=== PATIENT | male | born 1955 | race Caucasian/White ===

== ENCOUNTER 2023-11-04 15:16 | Outpatient (RCR) | payer MEDICARE, OTHER, SELFPAY | END 2023-11-04 23:59 | disposition home or self-care (01) | LOC: RST 15:16 | PROVIDERS: ATTENDING PHYSICIAN Otolaryngology; FAMILY PHYSICIAN Internal Medicine | DX: R13.10 Dysphagia, unspecified (principal); R13.12 Dysphagia, oropharyngeal phase | CPT/HCPCS: 92610 ==

== ENCOUNTER 2023-11-13 11:09 | Outpatient (RCR) | payer MEDICARE, OTHER, SELFPAY | END 2023-11-13 23:59 | disposition home or self-care (01) | LOC: RST 11:09 | PROVIDERS: ATTENDING PHYSICIAN Otolaryngology; FAMILY PHYSICIAN Internal Medicine | DX: R13.10 Dysphagia, unspecified (principal); R13.12 Dysphagia, oropharyngeal phase | CPT/HCPCS: 92526 ==

== ENCOUNTER → 2023-12-15 15:32 | Outpatient (REF) | payer MEDICARE, OTHER, SELFPAY | LOC: DHCBC MAIN 15:32 | PROVIDERS: ATTENDING PHYSICIAN Internal Medicine Cardiovascular Disease; FAMILY PHYSICIAN Internal Medicine | DX: R60.9 Edema, unspecified (principal) | CPT/HCPCS: 93306 ==

== ENCOUNTER 2024-01-07 06:18 | Outpatient (RCR) | payer MEDICARE, OTHER, SELFPAY | END 2024-01-07 23:59 | disposition home or self-care (01) | LOC: RST 06:18 | PROVIDERS: ATTENDING PHYSICIAN Otolaryngology; FAMILY PHYSICIAN Internal Medicine | DX: R13.10 Dysphagia, unspecified (principal); R13.12 Dysphagia, oropharyngeal phase | CPT/HCPCS: 92526 ==

== ENCOUNTER 2024-02-09 10:15 | Outpatient (RCR) | payer MEDICARE, OTHER, SELFPAY | END 2024-02-09 23:59 | disposition home or self-care (01) | LOC: RST 10:15 | PROVIDERS: ATTENDING PHYSICIAN Otolaryngology; FAMILY PHYSICIAN Internal Medicine | DX: R13.10 Dysphagia, unspecified (principal); R13.12 Dysphagia, oropharyngeal phase | CPT/HCPCS: 92526 ==

== ENCOUNTER 2024-03-08 09:33 | Outpatient (RCR) | payer MEDICARE, OTHER, SELFPAY | END 2024-03-08 23:59 | disposition home or self-care (01) | LOC: ROT 09:33 | PROVIDERS: ATTENDING PHYSICIAN Otolaryngology; FAMILY PHYSICIAN Internal Medicine | DX: R13.10 Dysphagia, unspecified (principal); I69.391 Dysphagia following cerebral infarction (principal); R13.12 Dysphagia, oropharyngeal phase; Z91.81 History of falling | CPT/HCPCS: 92526; 97110; 97163; 97167; 97530; 97535 ==

== ENCOUNTER → 2024-04-01 07:46 | Outpatient (REF) | payer MEDICARE, OTHER, SELFPAY | LOC: RAD 07:46 | PROVIDERS: PRIMARYCARE PHYSICIAN Internal Medicine | DX: M60.9 Myositis, unspecified (principal); R53.1 Weakness; R76.8 Other specified abnormal immunological findings in serum | CPT/HCPCS: 74177; Q9967 ==

== ENCOUNTER 2024-04-07 06:29 | Outpatient (RCR) | payer MEDICARE, OTHER, SELFPAY | END 2024-04-07 23:59 | disposition home or self-care (01) | LOC: ROT 06:29 | PROVIDERS: ATTENDING PHYSICIAN Otolaryngology; FAMILY PHYSICIAN Internal Medicine | DX: I69.398 Other sequelae of cerebral infarction (principal); R13.10 Dysphagia, unspecified (principal); R13.12 Dysphagia, oropharyngeal phase; R26.89 Other abnormalities of gait and mobility; H53.8 Other visual disturbances; I69.391 Dysphagia following cerebral infarction; I69.322 Dysarthria following cerebral infarction; Z73.6 Limitation of activities due to disability | CPT/HCPCS: 92522; 92526; 97110; 97112; 97116; 97530; 97535 ==

== ENCOUNTER → 2024-05-06 08:14 | Outpatient (REF) | payer MEDICARE, OTHER, SELFPAY | LOC: RAD 08:14 | PROVIDERS: ATTENDING PHYSICIAN Internal Medicine | DX: R13.10 Dysphagia, unspecified (principal) | CPT/HCPCS: 74230; 92611 ==

== ENCOUNTER 2024-05-10 10:24 | Outpatient (RCR) | payer MEDICARE, OTHER, SELFPAY | END 2024-05-10 23:59 | disposition home or self-care (01) | LOC: ROT 10:24 | PROVIDERS: ATTENDING PHYSICIAN Otolaryngology; FAMILY PHYSICIAN Internal Medicine | DX: I69.398 Other sequelae of cerebral infarction (principal); I63.30 Cerebral infarction due to thrombosis of unspecified cerebral artery (principal); Z73.6 Limitation of activities due to disability; R13.10 Dysphagia, unspecified; I69.391 Dysphagia following cerebral infarction; I69.322 Dysarthria following cerebral infarction; R13.12 Dysphagia, oropharyngeal phase | CPT/HCPCS: 92507; 92526; 97110; 97112; 97530; 97535 ==

== ENCOUNTER 2024-05-19 10:52 | Outpatient (RCR) | payer MEDICARE, OTHER, SELFPAY | END 2024-05-19 16:10 | disposition home or self-care (01) | LOC: ROT 10:52 | PROVIDERS: ATTENDING PHYSICIAN Otolaryngology; FAMILY PHYSICIAN Internal Medicine | DX: I63.30 Cerebral infarction due to thrombosis of unspecified cerebral artery (principal); I69.322 Dysarthria following cerebral infarction (principal); I69.398 Other sequelae of cerebral infarction; R13.10 Dysphagia, unspecified; I69.391 Dysphagia following cerebral infarction; R13.12 Dysphagia, oropharyngeal phase; I69.319 Unspecified symptoms and signs involving cognitive functions following cerebral infarction; H53.9 Unspecified visual disturbance; H53.8 Other visual disturbances; R26.89 Other abnormalities of gait and mobility; Z73.6 Limitation of activities due to disability | CPT/HCPCS: 92507; 92526; 97110; 97112; 97530; 97535 ==

== ENCOUNTER → 2024-08-01 20:05 | Outpatient (REF) | payer MEDICARE, OTHER, SELFPAY | LOC: MRI 3T 20:05 | PROVIDERS: ATTENDING PHYSICIAN Internal Medicine | DX: D35.2 Benign neoplasm of pituitary gland (principal); G45.9 Transient cerebral ischemic attack, unspecified; R41.9 Unspecified symptoms and signs involving cognitive functions and awareness; Z86.73 Personal history of transient ischemic attack (TIA), and cerebral infarction without residual deficits | CPT/HCPCS: 70553; A9575 ==

== ENCOUNTER 2024-09-16 12:57 | Emergency (ER) | payer MEDICARE, OTHER, SELFPAY ==
[2024-09-16 13:15] VITALS: BP 158/103
--- NOTE | 2024-09-16 13:19 | ED.GENMED ---
ED Provider Triage
<Chantell Ybarra NP - Last Filed: 09/16/24 13:21>
-
Patient seen by provider in Triage?: Seen in Triage
Attestation: A medical screening examination has been initiated by a qualified medical provider. Based on the assessment performed at this time, it has been determined that an emergent medical condition may exist and the patient has been informed
that further medical evaluation and possible additional diagnostic testing may be needed.
HPI: 69-year-old male states she has had a cough and shortness of breath for 2 weeks[address] He saw his Dr. Rodriguez today and sent here for evaluation. He denies fever or chills. He denies N/V/D/C.
GENERAL: Alert , in no apparent distress
EYE: No visual abnormalities.
NECK: Trachea midline
ENT: No visible abnormalities.
LUNGS: No acute respiratory distress
NEUROLOGICAL: Alert and oriented
SKIN: Skin intact. No visible changes.
MUSCULOSKELETAL: Moving extremities normally
PSYCH: Normal and appropriate interaction.
This is a medical evaluation conducted in person to initiate diagnostic evaluation and provide initial therapeutics. Please see further documentation by the treating clinician.
History of Present Illness
<Chantell Ybarra CERTIFIED MEDICAL CODING SPECIALIST - Last Filed: 09/16/24 13:21>
General
Chief Complaint: Breathing Problem
Time Seen by Provider: 09/16/24 17:50
<Rigoberto Contreras MD - Last Filed: 09/16/24 19:32>
History of Present Illness
History of Present Illness:
Patient is a 69-year-old male with history of A-fib on Eliquis, hypertension, DEIRDRE presenting to the emergency department cough and shortness of breath. Patient states for the past week he has had a cough with occasional difficulty breathing. He
states that he is feels congested and has been having some rhinorrhea. Over the past 2 days congestion worsen. He does note some shortness of breath with exertion and some orthopnea as well. No chest pain. He does note some mild lower extremity
swelling bilaterally that has been ongoing for quite some time now. No fevers or chills. No travel malignancy or hemoptysis. No recent sick contacts.
Past History
<Chantell Ybarra NP - Last Filed: 09/16/24 13:21>
Past History
ED Past Medical History: Arrthythmia (Atrial fibrillation) and HTN
ED Past Surgical History: Orthopedic (left hip)
Social History
Tobacco: Non-smoker
Alcohol: None
Drug: None
Personal:
Living: with family
Employment: Employed
Phy Exam
<Rigoberto Contreras MD - Last Filed: 09/16/24 19:32>
Physical Exam
Physical Exam:
GENERAL: in no acute distress
HEENT: normocephalic, extraocular movements intact, moist oral mucosa
NECK: normal inspection
RESPIRATORY: no respiratory distress, wheezing in all lung roque with coarse breath sounds in right lower
CARDIOVASCULAR: regular rate and rhythm
ABDOMEN/: soft, non-distended, non-tender to palpation, no rebound or guarding
EXTREMITIES: non-tender, mild pitting edema bilaterally
NEUROLOGIC: awake and alert, moves all extremities
SKIN: warm
Scores
<Rigoberto Contreras MD - Last Filed: 09/16/24 19:32>
Heart Failure Risk
Heart Failure Risk Score: Not Applicable
Course
<Chantell Ybarra CERTIFIED MEDICAL CODING SPECIALIST - Last Filed: 09/16/24 13:21>
Orders/Labs/Results
Orders:
Orders
09/16/24 13:18
Chest [CR Chest - 2 Views ] Urgent
Comment:
Reason For Exam: SOB
09/16/24 13:25
COVID-19 Antigen Urgent
Source: Nasal Swab
Complete Blood Count/With Diff Urgent
Comprehensive Metabolic Panel Urgent
09/16/24 17:43
Electrocardiogram (*1) Urgent
Reason for Study: Chest Pain
Cardiac Monitoring- Treatment ONCE
EKG- Treatment ONCE
IV Insert/Care/Rem.- Treatment PRN
09/16/24 17:49
Pro-BNP [NT-proBNP] Urgent
Troponin I Urgent
09/16/24 18:18
Ipratropium/Albuterol Sulfate [Duoneb] 3 ml INH R NOW ONE
09/16/24 19:25
Azithromycin [Zithromax] 500 mg PO NOW STA
09/16/24 19:27
Cefdinir [Omnicef] 300 mg PO NOW STA
Abnormal Lab Results
09/16/24
13:25
Absolute Neuts (auto) 7.4 H 10^3/uL
(1.4-6.5)
Absolute Monos (auto) 1.0 H 10^3/uL
(0.1-0.6)
Lymphocytes % 14.9 L %
(20.5-51.1)
Monocytes % 9.5 H %
(1.7-9.3)
Glucose 121 H mg/dl
(70-99)
09/16/24 13:25
09/16/24 13:25
Vital Signs
Initial and Last Documented VS:
Initial Vital Signs
Temp Pulse Resp BP Pulse Ox
98.2 F 82 18 158/103 95
09/16/24 13:15 09/16/24 13:15 09/16/24 13:15 09/16/24 13:15 09/16/24 13:15
Last Documented Vital Signs
Temp Pulse Resp BP Pulse Ox
98.2 F 75 27 134/80 94
09/16/24 13:15 09/16/24 19:01 09/16/24 18:30 09/16/24 19:00 09/16/24 19:05
<Hamna Ben, MD - Last Filed: 09/16/24 19:32>
Orders/Labs/Results
Orders:
Orders
09/16/24 13:18
Chest [CR Chest - 2 Views ] Urgent
Comment:
Reason For Exam: SOB
09/16/24 13:25
COVID-19 Antigen Urgent
Source: Nasal Swab
Complete Blood Count/With Diff Urgent
Comprehensive Metabolic Panel Urgent
09/16/24 17:43
Electrocardiogram (*1) Urgent
Reason for Study: Chest Pain
Cardiac Monitoring- Treatment ONCE
EKG- Treatment ONCE
IV Insert/Care/Rem.- Treatment PRN
09/16/24 17:49
Pro-BNP [NT-proBNP] Urgent
Troponin I Urgent
09/16/24 18:18
Ipratropium/Albuterol Sulfate [Duoneb] 3 ml INH R NOW ONE
09/16/24 19:25
Azithromycin [Zithromax] 500 mg PO NOW STA
09/16/24 19:27
Cefdinir [Omnicef] 300 mg PO NOW STA
Abnormal Lab Results
09/16/24
13:25
Absolute Neuts (auto) 7.4 H 10^3/uL
(1.4-6.5)
Absolute Monos (auto) 1.0 H 10^3/uL
(0.1-0.6)
Lymphocytes % 14.9 L %
(20.5-51.1)
Monocytes % 9.5 H %
(1.7-9.3)
Glucose 121 H mg/dl
(70-99)
09/16/24 13:25
09/16/24 13:25
Vital Signs
Initial and Last Documented VS:
Initial Vital Signs
Temp Pulse Resp BP Pulse Ox
98.2 F 82 18 158/103 95
09/16/24 13:15 09/16/24 13:15 09/16/24 13:15 09/16/24 13:15 09/16/24 13:15
Last Documented Vital Signs
Temp Pulse Resp BP Pulse Ox
98.2 F 75 27 134/80 94
09/16/24 13:15 09/16/24 19:01 09/16/24 18:30 09/16/24 19:00 09/16/24 19:05
<Rigoberto Contreras MD - Last Filed: 09/16/24 19:32>
MDM/Problems Addressed
Differential Diagnosis Includes:
Patient is a 69-year-old man presenting to the emergency department cough shortness of breath. Vitals here notable for oxygen saturation 97%. Exam does show wheezing in all lung roque with crackles to the right lower lobe as well as bilateral
pitting edema. Concern for pneumonia versus pulmonary edema versus atypical ACS given the exertional component. Considered PE though less likely. Blood work obtained prior to elevation is unremarkable. Will add on troponin and BNP. Chest x-ray
consistent with pneumonia. EKG per my interpretation normal sinus rhythm. Patient's ambulatory pulse ox was normal.
<Rigoberto Contreras MD - Last Filed: 09/16/24 19:32>
*Critical Care Note
Total Time (30-74mins, 75-104mins- exclusive of procedures): Not Applicable
<Rigoberto Contreras MD - Last Filed: 09/16/24 19:32>
Update Note
Update Note:
On reevaluations patient's wheezing has resolved. His troponin and BNP are normal. He is low risk by curb 65 for his pneumonia treatment. After shared decision making we will discharge home. First dose of antibiotics given here. Strict return
precautions given.
ED Attending Note
<Chantell Ybarra CERTIFIED MEDICAL CODING SPECIALIST - Last Filed: 09/16/24 13:21>
-
Portions of this chart may have been created with voice recognition software.� Occasional wrong word or��sound alike� substitutions may have occurred due to the inherent limitations of voice recognition software.
Discharge Plan
Departure
Patient Disposition: Home (Routine Discharge)
Date of Disposition: 09/16/24
Time of Disposition: 19:20
Patient with high blood pressure during this ER visit?: No
Discharge Problem:
Pneumonia
Instructions: Community-Acquired Pneumonia, Adult (DC)
Prescriptions:
New
albuterol sulfate 90 mcg/actuation HFA aerosol inhaler
2 puff inhalation QID PRN (Reason: shortness of breath or wheezing) Qty: 6.7 0RF
azithromycin [Zithromax] 250 mg tablet
250 mg PO DAILY Qty: 4 0RF
Rx Instructions:
start 09/17
cefdinir 300 mg capsule
300 mg PO BID 5 Days Qty: 10 0RF
No Action
psyllium husk (aspartame) [Metamucil Fiber Singles] 1 PACKET powder in packet
1 packet PO DAILY
carvedilol 6.25 MG tablet
12.5 mg PO BID
apixaban [Eliquis] 5 MG tablet
5 mg PO BID
ascorbic acid (vitamin C) [Vitamin C] 1,000 MG tablet
1,000 mg PO DAILY
zinc 10 MG tablet
1 tab PO DAILY
pantoprazole 40 MG tablet,delayed release (DR/EC)
40 mg PO DAILY Qty: 14 0RF
Referrals:
Ashwin Rodriguez I., DO [Family Provider] -
Activity Restrictions/Additional Instructions:
You were seen in the Emergency Department today for pneumonia. Please take the cefdinir and azithromycin as prescribed. You may use albuterol inhaler as needed.
We would like for you to follow up with your primary care physician for further evaluation. If you experience fever, worsening of your symptoms, or develop any other new or concerning symptoms, please return to the Emergency Department immediately.
Please see the attached sheet for additional information.
Interventions
Interventions:
*Risk Screen - Suicide Last Done: 09/16/24 13:15
*General Assessment Last Done: 09/16/24 13:15
*Neglect/Abuse Screening Last Done: 09/16/24 13:15
ED- Fall Risk Assessment Last Done: 09/16/24 17:37
*ED COVID-19 Vaccine History Last Done: 09/16/24 17:37
ED- Cardiac Assessment Last Done: 09/16/24 17:37
ED- Pulmonary Assessment Last Done: 09/16/24 19:05
Discharge Date and Time
Print Language: HEBREW
[2024-09-16 13:35] LABS: % Basophils 0.3 % (0-2); % Eosinophils 0.9 % (0-6); % Immature Granulocytes 0.3 % (0-0.5); % Lymphocytes 14.9 % (20.5-51.1); % Monocytes 9.5 % (1.7-9.3); % Neutrophils 74.1 % (42.2-75.2); Absolute Eosinophils 0.1 10^3/uL (0-0.7); Absolute Lymphocytes 1.5 10^3/uL (1.2-3.4); Absolute Neutrophils 7.4 10^3/uL (1.4-6.5); Hematocrit 41.6 % (39.0-52.0); Mean Corp Hgb Conc. 33.7 g/dL (33.0-37.0); Mean Corpuscular Hgb 29.7 pg (27.0-31.0); Mean Corpuscular Volume 88.1 fL (80.0-94.0); Mean Platelet Volume 10.2 fL (7.4-10.4); Nucleated Red Blood Cells % 0 % (-); Platelet Count 193 10^3/uL (130-400); Red Blood Cell Count 4.72 10^6/uL (4.70-6.10); Red Cell Dist. Width 12.8 % (11.5-14.5)
[2024-09-16 13:46] LABS: ALT (SGPT) 27 U/L (0-50); AST (SGOT) 34 U/L (17-59); Alkaline Phosphatase 75 U/L (38-126); Blood Urea Nitrogen 18 mg/dl (9-20); Calcium 8.5 mg/dl (8.4-10.2); Carbon Dioxide 30 mmol/L (22-30); Chloride 107 mmol/L (98-107); Glucose 121 mg/dl (70-99); Potassium 4.3 mmol/L (3.5-5.1); Sodium 144 mmol/L (135-145); Total Bilirubin 0.5 mg/dl (0.2-1.3); eGFR > 60.00
[2024-09-16 13:51] LABS: COVID-19 Antigen Negative (Negative)
[2024-09-16 15:55] VITALS: BP 142/92
[2024-09-16 17:30] VITALS: BP 133/83
--- NOTE | 2024-09-16 17:36 | EDRN ---
Pt states he came to ER for breathing 'funny.' Pt has audible expiratory wheeze and unable to cough it up.
[2024-09-16 17:45] VITALS: BMI 32.0
[2024-09-16 18:00] VITALS: BP 141/86
--- NOTE | 2024-09-16 18:03 | EDRN ---
Dr. Contreras in to see pt at this time.
[2024-09-16 18:27] LABS: NT-proBNP < 20.0 pg/ml; Troponin I < 0.012 ng/ml
[2024-09-16] MEDS: DUONEB 3 ML INH (18:29)
[2024-09-16 19:00] VITALS: BP 134/80
[2024-09-16] MEDS: ZITHROMAX 500 MG PO (20:09)
[2024-09-16] MEDS: OMNICEF 300 MG PO (20:09)
== END 2024-09-16 20:24 | disposition home or self-care (01) ==
LOC: EMR 12:57
PROVIDERS: Emergency Medicine; EMERGENCY PHYSICIAN Student in an Organized Health Care Education/Training Program; FAMILY PHYSICIAN Internal Medicine
DX: J18.9 Pneumonia, unspecified organism (principal); I10 Essential (primary) hypertension; G47.33 Obstructive sleep apnea (adult) (pediatric); I48.91 Unspecified atrial fibrillation; Z79.01 Long term (current) use of anticoagulants
CPT/HCPCS: 99285; 94640; 71046; 80053; 83880; 84484; 85025; 87811; 93005

== ENCOUNTER → 2024-10-03 11:24 | Outpatient (REF) | payer MEDICARE, OTHER, SELFPAY | LOC: RAD 11:24 | PROVIDERS: ATTENDING PHYSICIAN Internal Medicine | DX: Z13.820 Encounter for screening for osteoporosis (principal); S22.000A Wedge compression fracture of unspecified thoracic vertebra, initial encounter for closed fracture | CPT/HCPCS: 77080 ==

== ENCOUNTER → 2024-11-23 07:02 | Outpatient (REF) | payer MEDICARE, OTHER, SELFPAY | LOC: PAVMRI 07:02 | PROVIDERS: ATTENDING PHYSICIAN Psychiatry & Neurology Neurology; FAMILY PHYSICIAN Internal Medicine | DX: M54.40 Lumbago with sciatica, unspecified side (principal); M54.2 Cervicalgia | CPT/HCPCS: 72141; 72148 ==

== ENCOUNTER 2024-12-08 10:15 | Outpatient (RCR) | payer MEDICARE, OTHER, SELFPAY | END 2024-12-08 23:59 | disposition home or self-care (01) | LOC: ROT 10:15 | PROVIDERS: ATTENDING PHYSICIAN Psychiatry & Neurology Neurology; FAMILY PHYSICIAN Internal Medicine | DX: R13.10 Dysphagia, unspecified (principal); R13.12 Dysphagia, oropharyngeal phase; R47.1 Dysarthria and anarthria; Z73.6 Limitation of activities due to disability; Z86.73 Personal history of transient ischemic attack (TIA), and cerebral infarction without residual deficits | CPT/HCPCS: 92526; 92610; 97110; 97116; 97163; 97167; 97530; 97535 ==

== ENCOUNTER → 2024-12-12 09:49 | Outpatient (REF) | payer MEDICARE, OTHER, SELFPAY | LOC: RST 09:49 | PROVIDERS: ATTENDING PHYSICIAN Internal Medicine | DX: R13.10 Dysphagia, unspecified (principal) | CPT/HCPCS: 74230; 92611 ==

== ENCOUNTER → 2024-12-29 16:13 | Outpatient (REF) | payer MEDICARE, OTHER, SELFPAY | LOC: RAD 16:13 | PROVIDERS: ATTENDING PHYSICIAN Nurse Practitioner Family; FAMILY PHYSICIAN Internal Medicine | DX: J84.9 Interstitial pulmonary disease, unspecified (principal); R76.8 Other specified abnormal immunological findings in serum | CPT/HCPCS: 71250 ==

== ENCOUNTER 2025-01-09 09:34 | Outpatient (RCR) | payer MEDICARE, OTHER, SELFPAY | END 2025-01-09 23:59 | disposition home or self-care (01) | LOC: ROT 09:34 | PROVIDERS: ATTENDING PHYSICIAN Psychiatry & Neurology Neurology; FAMILY PHYSICIAN Internal Medicine | DX: R13.10 Dysphagia, unspecified (principal); R13.12 Dysphagia, oropharyngeal phase; R47.1 Dysarthria and anarthria; Z73.6 Limitation of activities due to disability; R41.89 Other symptoms and signs involving cognitive functions and awareness; I63.9 Cerebral infarction, unspecified; Z86.73 Personal history of transient ischemic attack (TIA), and cerebral infarction without residual deficits | CPT/HCPCS: 92507; 92522; 92526; 97110; 97112; 97116; 97530; 97535 ==

== ENCOUNTER → 2025-02-07 06:29 | Outpatient (RCR) | payer MEDICARE, OTHER, SELFPAY | LOC: ROT 06:29 | PROVIDERS: ATTENDING PHYSICIAN Psychiatry & Neurology Neurology; FAMILY PHYSICIAN Internal Medicine | DX: I69.391 Dysphagia following cerebral infarction (principal); R13.12 Dysphagia, oropharyngeal phase; R47.1 Dysarthria and anarthria; Z73.6 Limitation of activities due to disability; R41.89 Other symptoms and signs involving cognitive functions and awareness; Z86.73 Personal history of transient ischemic attack (TIA), and cerebral infarction without residual deficits | CPT/HCPCS: 92507; 92526; 97110; 97112; 97116; 97530; 97535 ==

== ENCOUNTER 2025-03-10 09:41 | Outpatient (RCR) | payer MEDICARE, OTHER, SELFPAY | END 2025-03-10 23:59 | disposition home or self-care (01) | LOC: ROT 09:41 | PROVIDERS: ATTENDING PHYSICIAN Psychiatry & Neurology Neurology; FAMILY PHYSICIAN Internal Medicine | DX: I69.391 Dysphagia following cerebral infarction (principal); R13.12 Dysphagia, oropharyngeal phase; R47.1 Dysarthria and anarthria; Z73.6 Limitation of activities due to disability; R41.89 Other symptoms and signs involving cognitive functions and awareness; Z86.73 Personal history of transient ischemic attack (TIA), and cerebral infarction without residual deficits | CPT/HCPCS: 92507; 92526; 97110; 97112; 97116; 97530 ==

== ENCOUNTER 2025-03-13 11:12 | Emergency (ER) | payer MEDICARE, OTHER, SELFPAY ==
[2025-03-13 11:12] VITALS: BP 134/79
[2025-03-13 11:47] VITALS: BP 136/87
[2025-03-13 12:00] VITALS: BP 132/87
--- NOTE | 2025-03-13 12:03 | EDRN ---
[employer] Day @ bedside to assess patient.
--- NOTE | 2025-03-13 12:18 | ED.GENMED ---
History of Present Illness
General
Chief Complaint: Head Injury
Source: patient and spouse
Exam Limitations: none
Time Seen by Provider: 03/13/25 11:54
Nursing documentation reviewed up to this point in time: agreed with
History of Present Illness
History of Present Illness:
69-year-old male with history of CVA with resultant dysphagia, uses walker to ambulate, A-fib on Eliquis, HTN, sleep apnea with CPAP, prothrombin gene mutation, lumbar spondylopathy, left hip replacement presents today for a fall in his bathroom
within the past few hours. He states he stumbled and fell, denies feeling weak or dizzy prior to, denies headache or chest pain. family at home heard the fall and arrived within seconds, there was no loss of consciousness. Patient denies any
injury and was able to be helped up and ambulate as usual.
Past History
Past History
ED Past Medical History: Arrthythmia (Atrial fibrillation), CVA (With resultant dysphagia), HTN and Other (Sleep apnea/CPAP)
ED Past Surgical History: Cardiac (Ablation 2020) and Orthopedic (left hip)
Social History
Tobacco: Non-smoker
Alcohol: None
Drug: None
Personal:
Living: with family
Employment: Retired
Review of Systems
Review of Systems
Allergies reviewed?: Yes
All Other Systems: ROS reviewed and negative except as documented in HPI and ROS
Constitutional: Denies fever
Respiratory: Denies trouble breathing
Cardiac: Denies chest pain or syncope
ABD/GI: Denies abdominal pain, nausea, vomiting or diarrhea
Musculoskeletal: Denies neck pain or back pain
Skin: Reports no symptoms
Neurological: Reports other (Dysphagia from previous CVA.)
Phy Exam
Physical Exam
Physical Exam:
GENERAL: No acute distress. A&Ox3.
CONSTITUTIONAL: Afebrile.
EYES: clear, conjunctivae normal
ENMT: moist mucus membranes, Pharynx nl
RESPIRATORY: Regular respirations, nonlabored, lungs clear.
CARDIOVASCULAR: Regular rate and rhythm, no murmurs, no rubs.
GI: Soft, nontender, normal BS
MUSCULOSKELETAL: Moving all extremities well. No spinal bony tenderness. Well perfused.
SKIN: Warm, dry, pink
PSYCH: Normal mood and affect. Well kept, interactive and appropriate
NEUROLOGIC: Awake, alert and oriented. Slurred, slow, speech, chronic post CVA. Strength 4/5 bilateral LE's, 5/5 bilatera UE's.
Course
Orders/Labs/Results
Orders:
Orders
03/13/25 11:12
CT Cervical Spine W/o Iv Contr Urgent
Comment:
Reason For Exam: fall on thinner
CT Head W/o Iv Contrast Urgent
Comment:
Reason For Exam: fall on thinner
Vital Signs
Initial and Last Documented VS:
Initial Vital Signs
Temp Pulse Resp BP Pulse Ox
98.7 F 67 16 134/79 99
03/13/25 11:12 03/13/25 11:12 03/13/25 11:12 03/13/25 11:12 03/13/25 11:12
Last Documented Vital Signs
Temp Pulse Resp BP Pulse Ox
98.7 F 57 21 132/87 98
03/13/25 11:12 03/13/25 12:15 03/13/25 12:15 03/13/25 12:00 03/13/25 12:15
MDM/Problems Addressed
MDM/Problems Addressed:
69-year-old male with history of CVA with resultant dysphagia, uses walker to ambulate, A-fib on Eliquis, HTN, sleep apnea with CPAP, prothrombin gene mutation, lumbar spondylopathy, left hip replacement presents today for a fall in his bathroom
within the past few hours. He states he stumbled and fell, denies feeling weak or dizzy prior to, denies headache or chest pain. family at home heard the fall and arrived within seconds, there was no loss of consciousness. Patient denies any
injury and was able to be helped up and ambulate as usual.
Afebrile, NAD
Head and neck CT radiology reports read: No acute abnormalities
Pt OOB and ambulating at base line with walker, listing to the right, states that is usual for him, no injuries noted.
Stable for discharge
*Critical Care Note
Total Time (30-74mins, 75-104mins- exclusive of procedures): Not Applicable
ED Attending Note
-
Portions of this chart may have been created with voice recognition software.� Occasional wrong word or��sound alike� substitutions may have occurred due to the inherent limitations of voice recognition software.
Discharge Plan
Departure
Patient Disposition: Home (Routine Discharge)
Date of Disposition: 03/13/25
Time of Disposition: 12:16
Patient with high blood pressure during this ER visit?: No
Condition: Good
Discharge Problem:
Fall from slip, trip, or stumble
Instructions: Head Injury in Adults (DC), Fall Prevention for Older Adults
Prescriptions:
No Action
psyllium husk [Metamucil Fiber Singles] 1 PACKET powder in packet
1 packet PO DAILY
carvedilol 6.25 MG tablet
12.5 mg PO BID
apixaban [Eliquis] 5 MG tablet
5 mg PO BID
ascorbic acid (vitamin C) [Vitamin C] 1,000 MG tablet
1,000 mg PO DAILY
zinc 10 MG tablet
1 tab PO DAILY
pantoprazole 40 MG tablet,delayed release (DR/EC)
40 mg PO DAILY Qty: 14 0RF
albuterol sulfate 90 mcg/actuation HFA aerosol inhaler
2 puff inhalation QID PRN (Reason: shortness of breath or wheezing) Qty: 6.7 0RF
azithromycin [Zithromax] 250 mg tablet
250 mg PO DAILY Qty: 4 0RF
Rx Instructions:
start 12/7
cefdinir 300 mg capsule
300 mg PO BID 5 Days Qty: 10 0RF
Referrals:
Ashwin Rodriguez I., DO [Family Provider, Internal Medicine] - As needed
Activity Restrictions/Additional Instructions:
As we discussed, your head and neck CT showed no acute injuries.
Interventions
Interventions:
*Risk Screen - Suicide Last Done: 03/13/25 11:14
*General Assessment Last Done: 03/13/25 11:48
*Neglect/Abuse Screening Last Done: 03/13/25 11:14
*ED- Fall Risk Assessment Last Done: 03/13/25 11:48
*ED COVID-19 Vaccine History Last Done: 03/13/25 11:48
*Nursing Disposition Last Done: 03/13/25 12:38
ED- Neurological Assessment Last Done: 03/13/25 11:50
Discharge Date and Time
Discharge Date/Time: 03/13/25 12:38
Print Language: GREEK
== END 2025-03-13 12:38 | disposition home or self-care (01) ==
LOC: EMR 11:12
PROVIDERS: EMERGENCY PHYSICIAN Emergency Medicine; FAMILY PHYSICIAN Internal Medicine
DX: S09.90XA Unspecified injury of head, initial encounter (principal); W01.0XXA Fall on same level from slipping, tripping and stumbling without subsequent striking against object, initial encounter; I48.91 Unspecified atrial fibrillation; I69.391 Dysphagia following cerebral infarction; I10 Essential (primary) hypertension; G47.30 Sleep apnea, unspecified; D68.52 Prothrombin gene mutation; M48.8X6 Other specified spondylopathies, lumbar region; M19.90 Unspecified osteoarthritis, unspecified site; Z79.01 Long term (current) use of anticoagulants; Z87.01 Personal history of pneumonia (recurrent)
CPT/HCPCS: 99284; 70450; 72125

== ENCOUNTER 2025-03-20 07:07 | Outpatient (RCR) | payer MEDICARE, OTHER, SELFPAY | END 2025-03-20 23:59 | disposition home or self-care (01) | LOC: ROT 07:07 | PROVIDERS: ATTENDING PHYSICIAN Psychiatry & Neurology Neurology; FAMILY PHYSICIAN Internal Medicine | DX: I69.391 Dysphagia following cerebral infarction (principal); R13.12 Dysphagia, oropharyngeal phase; R47.1 Dysarthria and anarthria; Z73.6 Limitation of activities due to disability; R41.89 Other symptoms and signs involving cognitive functions and awareness; Z86.73 Personal history of transient ischemic attack (TIA), and cerebral infarction without residual deficits | CPT/HCPCS: 92507; 92526 ==

== ENCOUNTER → 2025-09-01 11:34 | Outpatient (REF) | payer MEDICARE, OTHER, SELFPAY | LOC: RAD 11:34 | PROVIDERS: ATTENDING PHYSICIAN Nurse Practitioner Family; FAMILY PHYSICIAN Internal Medicine | DX: R06.89 Other abnormalities of breathing (principal) | CPT/HCPCS: 71046 ==